=== PATIENT | female | born 1960 | race African-American/Black ===

== ENCOUNTER 2016-09-26 19:41 | Emergency (ER) | payer OTHER ==
[~2016-09-26] VITALS: Ht 152.4 cm; Wt 82.0 kg
[~2016-09-26 19:41] MED LIST: FLUT1SPR9; HYDR12.56 PO; PROT40TA PO
[2016-09-26 19:43] VITALS: BP 186/95; PULSE 86; RESP 16; TEMP 97.8; O2SAT 98
[2016-09-26] MEDS ORDERED: SODIUM CHLOR 0.9% 1000 ML INJ 1,000 ML IV SCH (20:21)
--- NOTE | 2016-09-26 20:22 | PD ---
HPI Chief Complaint: Chest Pain Time Seen by Provider: 20:22 Travel History International Travel<30 days: No Contact w/Intl Traveler<30days: No Traveled to known affect area: No History of Present Illness HPI 56-year-old female with a history of hypertension and GERD presents to the emergency department for evaluation of epigastric pain radiating to the chest and throat that began last night. The patient states that she woke up at 2 AM with this pain and was experiencing nausea and vomiting. Patient states that she had pizza for dinner last night. States that this pain improved throughout the day until she ate this afternoon and the symptoms returned. She describes the epigastric pain as a tight squeezing pain. States that she has a burning pain in her chest and her throat. She denies any fever, chills, shortness of breath, difficulty breathing, diarrhea, constipation. States that she has had similar symptoms to this in the past and states at that time she was told it was her gallbladder and she had a cholecystectomy. States that she used to take Protonix for these symptoms in the past but has not taken this medication in several years. Denies any history of heart disease or NE. Denies any family history of heart disease. Denies any smoking history. No other complaints. PCP Dr. Lagunas. [facility] Past Medical History Heart Rhythm Problems: No Cardiac Catheterization: No Cardiovascular Problems: Yes (HTN) High Cholesterol: No Congestive Heart Failure: No Diabetes: No GERD: Yes Hypertension: No PNEUMOCCOCAL Vaccine (Year): 2 ?: Not Past Surgical History Coronary Artery Bypass Graft: No Gynecologic Surgery: Yes (C- SECTION 18 YEARS AGO) Social History Alcohol Use: No Tobacco Use: Yes Substance Use: No Allergies-Medications (Allergen,Severity, Reaction): Coded Allergies: No Known Allergies (Verified , 09/26/16) Reported Meds & Prescriptions Reported Meds & Active Scripts Active Zofran (Ondansetron HCl) 4 Mg Tab 4 Mg PO Q6HR PRN Maalox Max Liq (Mtgsaczh-Ncaeamvku-Titwvslqacy Liq) 400-400-40 Mg/5 Ml Susp 10- 20 Ml PO QID PRN 7 Days Take between meals or as directed. Shake well. Maximum 60 ml/24 hrs. Protonix (Pantoprazole Sodium) 40 Mg Tab 40 Mg PO DAILY 14 Days Flonase Allergy Relief Ch (Fluticasone Propionate (Nasal)) 50 Mcg/Act Spr 1 Puff NA BID Hydrochlorothiazide (Miscellaneous Medication) 12.5 Mg Cap 12.5 Mg PO BID Protonix (Pantoprazole Sodium) 40 Mg Tabdr 40 Mg PO BID Review of Systems Except as stated in HPI: all other systems reviewed are Neg Physical Exam Narrative GENERAL: Well-nourished and well-developed pleasant female patient in no acute distress. SKIN: Warm and dry. HEAD: Normocephalic and atraumatic. EYES: No injection, drainage, or hyphema noted. PERRLA. EOMI. ENT: No nasal drainage noted. Oropharynx is clear. NECK: Supple and the trachea is midline. CARDIOVASCULAR: Regular rate and rhythm. RESPIRATORY: Breath sounds are equal bilaterally with no accessory muscle use, wheezing, rhonchi, or crackles. GASTROINTESTINAL: Mild epigastric tenderness to palpation. No rebound tenderness or guarding. Abdomen is soft and nondistended. MUSCULOSKELETAL: No obvious deformities, swelling, cyanosis, or ecchymosis is present throughout the upper and lower extremities. Patient has full range of motion without any signs of neurovascular compromise. NEUROLOGICAL: Awake, alert, and oriented. Normal speech and gait. Cranial nerves are grossly intact. Data Data Last Documented VS Vital Signs Date Time Temp Pulse Resp B/P Pulse Ox O2 Delivery O2 Flow Rate FiO2 09/26/16 19:43 97.8 86 16 186/95 98 Orders Electrocardiogram (09/26/16 19:56) Complete Blood Count With Diff (09/26/16 20:21) Comprehensive Metabolic Panel (09/26/16 20:21) Lipase (09/26/16 20:21) Iv Access Insert/Monitor (09/26/16 20:21) Ecg Monitoring (09/26/16 20:21) Oximetry (09/26/16 20:21) Ondansetron Inj (Zofran Inj) (09/26/16 20:30) Pantoprazole Inj (Protonix Inj) (09/26/16 20:30) Sodium Chlor 0.9% 1000 Ml Inj (Ns 1000 M (09/26/16 20:21) Sodium Chloride 0.9% Flush (Ns Flush) (09/26/16 20:30) Chest, Single Ap (09/26/16 20:21) Al-Mag Hy-Si 40-40-4 Mg/Ml Liq (Mag-Al P (09/26/16 20:30) Lidocaine 2% Viscous (Xylocaine 2% Visco (09/26/16 20:30) Troponin I (09/26/16 20:21) Potassium Chloride Eff (K-Lyte Cl Eff) (09/26/16 21:30) Labs Laboratory Tests Test 09/26/16 20:45 White Blood Count 6.5 TH/MM3 Red Blood Count 4.45 MIL/MM3 Hemoglobin 14.1 GM/DL Hematocrit 40.6 % Mean Corpuscular Volume 91.2 FL Mean Corpuscular Hemoglobin 31.6 PG Mean Corpuscular Hemoglobin 34.7 % Concent Red Cell Distribution Width 12.7 % Platelet Count 307 TH/MM3 Mean Platelet Volume 7.5 FL Neutrophils (%) (Auto) 51.0 % Lymphocytes (%) (Auto) 35.6 % Monocytes (%) (Auto) 7.9 % Eosinophils (%) (Auto) 4.7 % Basophils (%) (Auto) 0.8 % Neutrophils # (Auto) 3.3 TH/MM3 Lymphocytes # (Auto) 2.3 TH/MM3 Monocytes # (Auto) 0.5 TH/MM3 Eosinophils # (Auto) 0.3 TH/MM3 Basophils # (Auto) 0.1 TH/MM3 CBC Comment DIFF FINAL Differential Comment Sodium Level 142 MEQ/L Potassium Level 3.1 MEQ/L Chloride Level 106 MEQ/L Carbon Dioxide Level 28.6 MEQ/L Anion Gap 7 MEQ/L Blood Urea Nitrogen 11 MG/DL Creatinine 0.99 MG/DL Estimat Glomerular Filtration 70 ML/MIN Rate Random Glucose 149 MG/DL Calcium Level 8.8 MG/DL Total Bilirubin 0.1 MG/DL Aspartate Amino Transf 14 U/L (AST/SGOT) Alanine Aminotransferase 19 U/L (ALT/SGPT) Alkaline Phosphatase 122 U/L Troponin I LESS THAN 0.02 NG/ML Total Protein 7.6 GM/DL Albumin 3.1 GM/DL Lipase 131 U/L [facility] Medical Decision Making Medical Screen Exam Complete: Yes Emergency Medical Condition: Yes Differential Diagnosis Gastritis versus PUD versus GERD versus pancreatitis versus ACS Narrative Course 56-year-old female presents to the emergency department for evaluation of epigastric pain radiating to her chest and throat with nausea and vomiting. Patient is afebrile, vital signs are stable. Physical examination reveals mild epigastric tenderness to palpation but otherwise unremarkable. EKG shows sinus rhythm with no acute ST elevations or depressions. IV access is obtained, labs were drawn and sent. Patient is administered IV fluids, Zofran, Protonix and is given a GI cocktail. Chest x-ray is negative for any acute abnormalities. CBC is unremarkable. CMP shows mild hypokalemia with potassium of 3.1, otherwise unremarkable. Lipase is normal. Troponin is less than 0.02. Patient reports great improvement of symptoms after Protonix and GI cocktail. States she is feeling much better. I did discuss the option of chest pain center admission to rule out possible cardiac etiology however patient elects to follow up as an outpatient with her PCP. I think this is reasonable, I do believe that this is secondary to gastric reflux. She'll be discharged with Protonix, Zofran and Maalox. Patient verbalizes understanding and is in agreement with treatment plan. I discussed the case with my attending physician Dr. Morales who is aware of the patients history, physical examination findings, and treatment plan. Diagnosis Primary Impression: GERD Referrals: [employer] Primary Care Physician Patient Instructions: Gastroesophageal Reflux Disease (ED), General Instructions Additional Instructions: Avoid acidic foods like spicy foods, coffee, red sauces such as pizza or marinara. Take medications as prescribed. Follow-up with your Primary Care Physician. Return to the ED for any acute worsening of symptoms. Med/Other Pt SpecificInfo: Prescription(s) given Scripts Ondansetron (Zofran)4 Mg Tab4 Mg PO Q6HR PRN (NAUSEA OR VOMITING) #10 TAB Ref 0 Prov:Mara Morales MD 09/26/16 Frguojic-Qxoyfsitv-Dnyzsijufyt Liq (Maalox Max Liq)400-400-40 Mg/5 Ml [id number] Ml PO QID PRN (INDIGESTION OR UPSET STOMACH) 7 Days Ref 0 Take between meals or as directed. Shake well. Maximum 60 ml/24 hrs. Prov:Mara Morales MD 09/26/16 Pantoprazole (Protonix)40 Mg Tab40 Mg PO DAILY 14 Days Ref 0 Prov:Mara Morales MD 09/26/16 Disposition: 01 DISCHARGE HOME Condition: Stable Anu Watters Sep 26, 2016 20:22
[2016-09-26] MEDS ORDERED: LIDOCAINE VISCOUS 2% SOLN 15 ML UDC PO ONE (20:30)
[2016-09-26] MEDS ORDERED: SODIUM CHLORIDE 0.9% FLUSH 5 ML FLUSH IVF PRN (20:30)
[2016-09-26] MEDS ORDERED: ONDANSETRON HCL 4 MG/2 ML VIAL IVP ONE (20:30)
[2016-09-26] MEDS ORDERED: PANTOPRAZOLE SODIUM 40 MG VIAL IVP ONE (20:30)
[2016-09-26] MEDS ORDERED: ALUMINUM/MAGNESIUM/SIMETH 30 ML CUP PO ONE (20:30)
--- NOTE | 2016-09-26 20:50 | RADRPT ---
EXAM DATE/TIME: 09/26/2016 20:23 [place] COMPARISON: No previous studies available for comparison. INDICATIONS : Chest Pain. MEDICAL HISTORY : None. SURGICAL HISTORY : None. ENCOUNTER: Initial ACUITY: 2 days PAIN SCORE: 0/10 LOCATION: Bilateral chest FINDINGS: A single view of the chest demonstrates the lungs to be symmetrically aerated without evidence of mas s, infiltrate or effusion. The cardiomediastinal contours are unremarkable. Osseous structures are intact. CONCLUSION: Normal examination for a patient of this age. Dimas Bautista MD on September 26, 2016 at 20:48 Board Certified Radiologist. This report was verified electronically.
[2016-09-26 21:01] LABS: AUTOMATED NEUTROPHIL # 3.3 TH/MM3 (1.8-7.7); BASOPHIL # 0.1 TH/MM3 (0-0.2); BASOPHIL % 0.8 % (0.0-2.0); EOSINOPHIL # 0.3 TH/MM3 (0-0.4); EOSINOPHIL % 4.7 % (0.0-4.0); HEMATOCRIT 40.6 % (35.0-46.0); HEMO FLAGS DIFF FINAL; LYMPH % 35.6 % (9.0-44.0); LYMPHOCYTE # 2.3 TH/MM3 (1.0-4.8); MEAN CELL VOLUME 91.2 FL (80.0-100.0); MEAN CORPUSCULAR HEMOGLOBIN 31.6 PG (27.0-34.0); MEAN CORPUSCULAR HGB CONC 34.7 % (32.0-36.0); MONO % 7.9 % (0.0-8.0); PLATELET COUNT 307 TH/MM3 (150-450); RED BLOOD COUNT 4.45 MIL/MM3 (4.00-5.30); RED CELL DISTRIBUTION WIDTH 12.7 % (11.6-17.2); WHITE BLOOD COUNT 6.5 TH/MM3 (4.0-11.0)
[2016-09-26 21:24] LABS: ANION GAP 7 MEQ/L (5-15); AST (GOT) 14 U/L (15-37); BICARBONATE 28.6 MEQ/L (21.0-32.0); BLOOD UREA NITROGEN 11 MG/DL (7-18); CHLORIDE 106 MEQ/L (98-107); GLOMERULAR FILTRATION RATE 70 ML/MIN (>89); POTASSIUM 3.1 MEQ/L (3.5-5.1); SODIUM (NA) 142 MEQ/L (136-145)
[2016-09-26 21:30] LABS: ALKALINE PHOSPHATASE 122 U/L (45-117); ALT (GPT) 19 U/L (10-53); TOTAL BILIRUBIN ADULT 0.1 MG/DL (0.2-1.0)
[2016-09-26] MEDS ORDERED: POTASSIUM CHLORIDE 25 MEQ EFFERVESCENT TAB PO ONE (21:30)
[2016-09-26] MEDS ORDERED: MAALSUS PO (21:38)
[2016-09-26] MEDS ORDERED: ZOFR4TAB PO (21:38)
[2016-09-26] MEDS ORDERED: PROT40TA PO (21:38)
[2016-09-26 21:50] VITALS: BP 178/89; PULSE 81; RESP 18; O2SAT 98
--- NOTE | 2016-09-27 20:02 | EKG ---
Date Performed: 09/26/2016 Time Performed: 20:13:32 PTAGE: 56 years EKG: Sinus rhythm LOW QRS VOLTAGE IN PRECORDIAL LEADS NONSPECIFIC T-WAVE ABNORMALITY BORDERLINE ECG PREVIOUS TRACING : 07/10/2011 01.30 Compared to prior tracing no significant change DOCTOR: Reinaldo Martin Interpretating Date/Time 09/27/2016 20:00:47
[2016-11-13] MEDS ORDERED: CARA1TAB6 PO (10:55)
[2016-11-13] MEDS ORDERED: OMEP40CA2 PO (10:55)
[2016-11-13] MEDS ORDERED: HYDR12.56 PO (10:56)
[2016-11-27] MEDS ORDERED: RANI300T PO (14:58)
== END 2016-09-26 21:55 | disposition home or self-care (01) ==
LOC: NEPC 19:41
DX: K21.9 Gastro-esophageal reflux disease without esophagitis (principal); R94.31 Abnormal electrocardiogram [ECG] [EKG]; I10 Essential (primary) hypertension; Z72.0 Tobacco use
CPT/HCPCS: 71010; 80053; 83690; 84484; 85025; 93005; 96361; 96374; 96375; 99284; C9113; J2405; J7030